=== PATIENT | female | born 1995 | race Caucasian/White ===

== ENCOUNTER 2017-11-21 15:40 | Emergency (ER) | payer MEDICAID ==
[2017-11-21] MEDS: ACETAMINOPHEN 325 MG TAB PO (20:24)
[2017-11-21 20:39] LABS: ADD MAN DIFF? NO
[2017-11-21 20:42] LABS: WHITE BLOOD COUNT 8.6 10^3/ul (4.8-10.8)
[2017-11-21 20:42] LABS: BASOPHILS % 0.5 % (0.0-2.0); EOSINOPHILS # 0.1 10^3/ul (0.0-0.5); EOSINOPHILS % 1.4 % (0.0-7.0); HEMATOCRIT 38.3 % (37.0-47.0); HEMOGLOBIN 12.4 g/dl (12.0-16.0); LYMPHOCYTES # 3.6 10^3/ul (0.8-2.9); LYMPHOCYTES % 41.3 % (15.0-51.0); MEAN CORPUSCULAR HGB CONC 32.4 g/dl (32.0-37.0); MEAN CORPUSCULAR VOLUME 92.5 fl (82.0-101.0); MEAN PLATELET VOLUME 10.9 fl (7.4-10.4); NEUTROPHIL # 3.9 10^3/ul (1.6-7.5); NEUTROPHILS % 45.6 % (39.0-77.0); PLATELET COUNT 310 10^3/UL (140-415); RED BLOOD COUNT 4.14 10^6/ul (4.20-5.40); RED CELL DISTRIBUTION WIDTH 13.1 % (11.5-14.5)
[2017-11-21] MEDS: METOCLOPRAMIDE 10 MG TAB PO (21:10)
[2017-11-21 21:11] LABS: INR 0.92; PROTIME 12.4 Sec (11.9-14.9)
[2017-11-21 21:12] LABS: PARTIAL THROMBOPLASTIN TIME 27.4 Sec (25.0-35.0)
[2017-11-21 21:29] LABS: ADD UMIC YES; UR ASCORBIC ACID NEGATIVE (NEGATIVE); UR BACTERIA MODERATE /HPF (NONE SEEN); UR BILIRUBIN (Dip) NEGATIVE (NEGATIVE); UR BLOOD (Dip) 1+ mg/dL (NEGATIVE); UR CLARITY CLOUDY (CLEAR); UR COLOR YELLOW (YELLOW); UR GLUCOSE (Dip) NEGATIVE (NEGATIVE); UR KETONES (Dip) 2+ mg/dL (NEGATIVE); UR LEUKOCYTE ESTERASE (Dip) 1+ Leu/ul (NEGATIVE); UR MUCUS MODERATE /HPF (NONE SEEN); UR NITRITE (Dip) NEGATIVE (NEGATIVE); UR RBC 5 /HPF (0-5); UR SQUAMOUS EPITHELIAL CELL MODERATE /HPF (FEW); UR TOTAL PROTEIN (Dip) NEGATIVE (NEGATIVE); UR UROBILINOGEN (Dip) NEGATIVE (NEGATIVE); UR WBC 27 /HPF (0-5)
== END 2017-11-21 22:44 | disposition home or self-care (01) ==
LOC: FTE 15:40
DX: O26.891 Other specified pregnancy related conditions, first trimester (principal); O23.41 Unspecified infection of urinary tract in pregnancy, first trimester; R10.2 Pelvic and perineal pain; Z3A.01 Less than 8 weeks gestation of pregnancy
CPT/HCPCS: 36415; 76801; 81001; 84702; 85025; 85610; 85730; 86900; 86901; 87086; 99284-25

== ENCOUNTER 2017-11-24 09:23 | Inpatient (IN) | payer MEDICAID ==
[2017-11-24] MEDS: D5W-0.45 NACL + KCL 20 MEQ 1,000 ML IV ×2 (13:44→21:52)
[2017-11-24 14:46] LABS: ANION GAP 13 (8-16); BLOOD UREA NITROGEN 8 mg/dl (7-20); CALCIUM 9.5 mg/dl (8.4-10.2); CARBON DIOXIDE 26 mmol/L (21-31); CHLORIDE 102 mmol/L (97-110); CREATININE 0.41 mg/dl (0.44-1.00); GLUCOSE 80 mg/dl (70-220); SODIUM 137 mmol/L (135-144)
[2017-11-24 15:25] LABS: FREE THYROXINE INDEX (Calc) 4.06 ug/ml (0.65-3.89); T3 UPTAKE 25.4 % (23.5-40.5)
[2017-11-24] MEDS: FAMOTIDINE 20 MG INJ IV ×3 (15:34→23:46)
[2017-11-24 15:56] LABS: ADD UMIC NO; UR ASCORBIC ACID NEGATIVE (NEGATIVE); UR BILIRUBIN (Dip) NEGATIVE (NEGATIVE); UR BLOOD (Dip) NEGATIVE (NEGATIVE); UR CLARITY CLEAR (CLEAR); UR COLOR YELLOW (YELLOW); UR GLUCOSE (Dip) NEGATIVE (NEGATIVE); UR KETONES (Dip) 2+ mg/dL (NEGATIVE); UR LEUKOCYTE ESTERASE (Dip) NEGATIVE Leu/ul (NEGATIVE); UR NITRITE (Dip) NEGATIVE (NEGATIVE); UR SPECIFIC GRAVITY (Dip) 1.013 (1.003-1.030); UR TOTAL PROTEIN (Dip) NEGATIVE (NEGATIVE); UR UROBILINOGEN (Dip) NEGATIVE (NEGATIVE)
[2017-11-24] MEDS ORDERED: RANITIDINE 50 MG in SOD CHLORIDE 0.9% 50 ML IVPB (18:00)
[2017-11-24 19:33] LABS: THYROID STIMULATING HORMONE 0.073 MIU/L (0.465-4.680)
[2017-11-24 21:11] LABS: FREE T3 3.89 pg/ml (2.77-5.27)
[2017-11-24] MEDS: ONDANSETRON 4 MG INJ IV (21:56)
[2017-11-24] MEDS: PYRIDOXINE 50 MG TAB PO (23:46)
[2017-11-25] MEDS: METOCLOPRAMIDE 10 MG INJ IV ×3 (02:35→18:10)
[2017-11-25] MEDS: FAMOTIDINE 20 MG INJ IV ×3 (05:59→18:10)
[2017-11-25] MEDS: D5W-0.45 NACL + KCL 20 MEQ 1,000 ML IV ×2 (05:59→12:34)
[2017-11-25] MEDS: PYRIDOXINE 50 MG TAB PO ×3 (06:00→18:10)
[2017-11-25] MEDS: FOLIC ACID IVPB (09:52)
[2017-11-25] MEDS: SOD CHLORIDE 0.9% IVPB (09:52)
[2017-11-25] MEDS: MULTIVITAMINS 10 ML in DEXTROSE 5%-0.45% NACL 1,000 ML IVPB (09:52)
[2017-11-26] MEDS: PYRIDOXINE 50 MG TAB PO ×4 (00:09→18:00)
[2017-11-26] MEDS: D5W-0.45 NACL + KCL 20 MEQ 1,000 ML IV ×4 (00:09→21:14)
[2017-11-26] MEDS: FAMOTIDINE 20 MG INJ IV ×4 (00:09→19:25)
[2017-11-26 06:42] LABS: ALANINE AMINOTRANSFERASE 37 IU/L (13-69); ALBUMIN 3.3 g/dl (3.3-4.9); ALKALINE PHOSPHATASE 63 IU/L (42-121); ANION GAP 12 (8-16); ASPARTATE AMINO TRANSFERASE 24 IU/L (15-46); BILIRUBIN,INDIRECT 0.2 mg/dl (0-1.1); BILIRUBIN,TOTAL 0.2 mg/dl (0.2-1.3); CALCIUM 8.9 mg/dl (8.4-10.2); CARBON DIOXIDE 25 mmol/L (21-31); CHLORIDE 104 mmol/L (97-110); CREATININE 0.44 mg/dl (0.44-1.00); GLUCOSE 100 mg/dl (70-220); POTASSIUM 3.9 mmol/L (3.5-5.1); SODIUM 137 mmol/L (135-144); TOTAL PROTEIN 6.6 g/dl (6.1-8.1)
[2017-11-26 06:44] LABS: BLOOD UREA NITROGEN < 2 mg/dl (7-20)
[2017-11-26] MEDS: FOLIC ACID IVPB (09:37)
[2017-11-26] MEDS: SOD CHLORIDE 0.9% IVPB (09:37)
[2017-11-26] MEDS: MULTIVITAMINS 10 ML in DEXTROSE 5%-0.45% NACL 1,000 ML IVPB (09:38)
[2017-11-26] MEDS: METOCLOPRAMIDE 10 MG INJ IV (19:25)
[2017-11-26] MEDS: ONDANSETRON 4 MG INJ IV (21:14)
[2017-11-27] MEDS: PYRIDOXINE 50 MG TAB PO ×5 (00:24→23:17)
[2017-11-27] MEDS: FAMOTIDINE 20 MG INJ IV ×5 (00:24→23:17)
[2017-11-27] MEDS: D5W-0.45 NACL + KCL 20 MEQ 1,000 ML IV ×3 (05:18→23:17)
[2017-11-27 06:25] LABS: FREE T3 3.46 pg/ml (2.77-5.27)
[2017-11-27 06:39] LABS: THYROID STIMULATING HORMONE 0.026 MIU/L (0.465-4.680)
[2017-11-27] MEDS: SOD CHLORIDE 0.9% IVPB (08:52)
[2017-11-27] MEDS: FOLIC ACID IVPB (08:52)
[2017-11-27] MEDS: MULTIVITAMINS 10 ML in DEXTROSE 5%-0.45% NACL 1,000 ML IVPB (08:52)
[2017-11-27 14:02] LABS: THYROID MICROSOMAL ANTIBODY 7 IU/mL (<9)
[2017-11-28] MEDS: D5W-0.45 NACL + KCL 20 MEQ 1,000 ML IV ×3 (06:31→18:50)
[2017-11-28] MEDS: PYRIDOXINE 50 MG TAB PO ×3 (06:31→18:11)
[2017-11-28] MEDS: FAMOTIDINE 20 MG INJ IV ×3 (06:33→18:11)
[2017-11-28] MEDS: FOLIC ACID IVPB (08:25)
[2017-11-28] MEDS: MULTIVITAMINS 10 ML in DEXTROSE 5%-0.45% NACL 1,000 ML IVPB (08:25)
[2017-11-28] MEDS: SOD CHLORIDE 0.9% IVPB (08:25)
[2017-11-29] MEDS: D5W-0.45 NACL + KCL 20 MEQ 1,000 ML IV ×3 (00:47→12:57)
[2017-11-29] MEDS: FAMOTIDINE 20 MG INJ IV ×3 (00:48→12:00)
[2017-11-29] MEDS: PYRIDOXINE 50 MG TAB PO ×3 (00:48→12:00)
[2017-11-29] MEDS: MULTIVITAMINS 10 ML in DEXTROSE 5%-0.45% NACL 1,000 ML IVPB (08:53)
[2017-11-29] MEDS: FOLIC ACID IVPB (08:53)
[2017-11-29] MEDS: SOD CHLORIDE 0.9% IVPB (08:53)
[2017-12-01 22:11] LABS: TSH RECEPTOR ANTIBODY 8 (< OR = 16)
== END 2017-11-29 14:53 | disposition home or self-care (01) | DRG 781 ==
LOC: PP2 09:23
DX: O21.1 Hyperemesis gravidarum with metabolic disturbance (principal); E86.0 Dehydration; R94.6 Abnormal results of thyroid function studies; O99.351 Diseases of the nervous system complicating pregnancy, first trimester; G43.909 Migraine, unspecified, not intractable, without status migrainosus; Z3A.01 Less than 8 weeks gestation of pregnancy
CPT/HCPCS: 80048; 80053; 81003; 84235; 84436; 84439; 84443; 84479; 84481; 86376; 86800; 87522; 99217; G0378

== ENCOUNTER 2018-05-10 17:00 | Outpatient (CLI) | payer MEDICAID | END 2018-05-10 20:20 | disposition home or self-care (01) | LOC: OBT 17:00 → L-D 17:00 → OBT 20:20 | DX: O09.293 Supervision of pregnancy with other poor reproductive or obstetric history, third trimester (principal); Z3A.32 32 weeks gestation of pregnancy | CPT/HCPCS: 76818 ==

== ENCOUNTER 2018-05-28 10:41 | Outpatient (CLI) | payer MEDICAID ==
[2018-05-28 11:31] LABS: ADD UMIC YES; UR ASCORBIC ACID 40 mg/dL (NEGATIVE); UR BACTERIA FEW /HPF (NONE SEEN); UR BILIRUBIN (Dip) NEGATIVE (NEGATIVE); UR BLOOD (Dip) NEGATIVE (NEGATIVE); UR CLARITY CLOUDY (CLEAR); UR COLOR YELLOW (YELLOW); UR GLUCOSE (Dip) NEGATIVE (NEGATIVE); UR KETONES (Dip) TRACE mg/dL (NEGATIVE); UR LEUKOCYTE ESTERASE (Dip) 1+ Leu/ul (NEGATIVE); UR MUCUS MANY /HPF (NONE SEEN); UR NITRITE (Dip) NEGATIVE (NEGATIVE); UR RBC 5 /HPF (0-5); UR SPECIFIC GRAVITY (Dip) 1.019 (1.003-1.030); UR SQUAMOUS EPITHELIAL CELL FEW /HPF (FEW); UR TOTAL PROTEIN (Dip) NEGATIVE (NEGATIVE); UR UROBILINOGEN (Dip) NEGATIVE (NEGATIVE); UR WBC 33 /HPF (0-5)
[2018-05-28] MEDS: LACTATED RINGER'S 1,000 ML IV (11:32)
== END 2018-05-28 13:35 | disposition home or self-care (01) ==
LOC: OBT 10:41 → L-D 10:42 → OBT 13:35
DX: O47.03 False labor before 37 completed weeks of gestation, third trimester (principal); Z3A.35 35 weeks gestation of pregnancy
CPT/HCPCS: 36415; 81001; 96360; 96361

== ENCOUNTER 2018-06-01 10:59 | Outpatient (CLI) | payer MEDICAID | END 2018-06-01 14:22 | disposition home or self-care (01) | LOC: OBT 10:59 → L-D 10:59 → OBT 14:22 | DX: O36.8130 Decreased fetal movements, third trimester, not applicable or unspecified (principal); O62.9 Abnormality of forces of labor, unspecified; Z3A.35 35 weeks gestation of pregnancy | CPT/HCPCS: 76818 ==

== ENCOUNTER 2018-06-28 20:57 | Inpatient (IN) | payer MEDICAID ==
[2018-06-28] MEDS ORDERED: METHYLERGONOVINE 0.2 MG INJ IM (21:30)
[2018-06-28] MEDS ORDERED: LIDOCAINE 1% (MPF) 30 ML INJ INJ (21:30)
[2018-06-28] MEDS ORDERED: OXYTOCIN 30 UNITS/LR 500 ML IV (21:30)
[2018-06-28] MEDS ORDERED: CARBOPROST 250 MCG INJ IM (21:30)
[2018-06-28] MEDS ORDERED: BUTORPHANOL 2 MG INJ IV (21:30)
[2018-06-28] MEDS ORDERED: MINERAL OIL LIGHT 10 ML VIAL TOP (21:30)
[2018-06-28] MEDS ORDERED: MISOPROSTOL 200 MCG TAB PR (21:30)
[2018-06-28] MEDS: LACTATED RINGER'S 1,000 ML IV (21:42)
[2018-06-28 21:54] LABS: ADD MAN DIFF? NO
[2018-06-28 21:57] LABS: BASOPHILS % 0.3 % (0.0-2.0); EOSINOPHILS # 0.1 10^3/ul (0.0-0.5); EOSINOPHILS % 0.8 % (0.0-7.0); HEMATOCRIT 34.2 % (37.0-47.0); HEMOGLOBIN 11.2 g/dl (12.0-16.0); LYMPHOCYTES # 2.5 10^3/ul (0.8-2.9); LYMPHOCYTES % 34.2 % (15.0-51.0); MEAN CORPUSCULAR HEMOGLOBIN 29.3 pg (29.0-33.0); MEAN CORPUSCULAR HGB CONC 32.7 g/dl (32.0-37.0); MEAN CORPUSCULAR VOLUME 89.5 fl (82.0-101.0); MEAN PLATELET VOLUME 11.2 fl (7.4-10.4); MONOCYTE # 0.9 10^3/ul (0.3-0.9); MONOCYTES % 11.9 % (0.0-11.0); NEUTROPHIL # 3.8 10^3/ul (1.6-7.5); NEUTROPHILS % 52.4 % (39.0-77.0); PLATELET COUNT 237 10^3/UL (140-415); RED BLOOD COUNT 3.82 10^6/ul (4.20-5.40); RED CELL DISTRIBUTION WIDTH 13.8 % (11.5-14.5)
[2018-06-28 21:57] LABS: WHITE BLOOD COUNT 7.3 10^3/ul (4.8-10.8)
[2018-06-28 22:11] LABS: INR 0.82; PROTIME 11.4 Sec (11.9-14.9); PT RATIO 0.9
[2018-06-28 22:12] LABS: PARTIAL THROMBOPLASTIN TIME 25.4 Sec (23.0-35.0)
[2018-06-28 22:45] LABS: HEPATITIS B SURFACE ANTIGEN NEGATIVE (NEGATIVE)
[2018-06-28] MEDS: OXYTOCIN 30 UNITS/LR 500 ML IV (22:56)
[2018-06-29] MEDS ORDERED: FENTAnyl 2MCG/ML-ROPIV 0.2% 100 ML (00:21)
[2018-06-29] MEDS: LACTATED RINGER'S 1,000 ML IV ×4 (00:24→12:06)
[2018-06-29] MEDS ORDERED: ONDANSETRON 4 MG INJ IV (00:30)
[2018-06-29] MEDS ORDERED: NALOXONE (0.4 MG/ML) INJ IV (00:30)
[2018-06-29] MEDS: FENTAnyl 2MCG/ML-ROPIV 0.2% 100 ML BAG EPI (08:43)
[2018-06-29] MEDS ORDERED: MINERAL OIL LIGHT 10 ML VIAL TOP (10:30)
[2018-06-29] MEDS: OXYTOCIN 30 UNITS/LR 500 ML IV ×2 (13:21→15:09)
[2018-06-29 14:45] LABS: RAPID PLASMA REAGIN NONREACTIVE (NR)
[2018-06-29] MEDS ORDERED: OXYCODONE/ASPIRIN (4.88/325) TAB PO ×2 (15:00→17:30)
[2018-06-29] MEDS: IBUPROFEN 600 MG TAB PO ×2 (15:00→18:00)
[2018-06-29] MEDS ORDERED: OXYTOCIN 30 UNITS/LR 500 ML IV (17:30)
[2018-06-29] MEDS ORDERED: CARBOPROST 250 MCG INJ IM (17:30)
[2018-06-29] MEDS ORDERED: ZOLPIDEM 5 MG TAB PO (17:30)
[2018-06-29] MEDS ORDERED: MISOPROSTOL 200 MCG TAB PR (17:30)
[2018-06-29] MEDS ORDERED: METHYLERGONOVINE 0.2 MG INJ IM (17:30)
[2018-06-29] MEDS: BENZOCAINE 20% 56 ML SPRAY TOP (18:03)
[2018-06-29] MEDS: LANOLIN HPA 1 PKT TOP (18:03)
[2018-06-29] MEDS: WITCH HAZEL/GLYCERIN PAD PR (18:03)
[2018-06-29] MEDS: SENNA/DOCUSATE NA (8.6MG/50MG) TAB PO (21:06)
[2018-06-30] MEDS: IBUPROFEN 600 MG TAB PO ×4 (00:19→18:00)
[2018-06-30 08:32] LABS: ADD MAN DIFF? NO
[2018-06-30 08:39] LABS: WHITE BLOOD COUNT 12.1 10^3/ul (4.8-10.8)
[2018-06-30 08:39] LABS: BASOPHILS % 0.3 % (0.0-2.0); EOSINOPHILS # 0.1 10^3/ul (0.0-0.5); HEMOGLOBIN 9.2 g/dl (12.0-16.0); LYMPHOCYTES # 3.8 10^3/ul (0.8-2.9); LYMPHOCYTES % 31.7 % (15.0-51.0); MEAN CORPUSCULAR HEMOGLOBIN 29.2 pg (29.0-33.0); MEAN CORPUSCULAR HGB CONC 31.7 g/dl (32.0-37.0); MEAN CORPUSCULAR VOLUME 92.1 fl (82.0-101.0); MEAN PLATELET VOLUME 11.6 fl (7.4-10.4); MONOCYTE # 1.2 10^3/ul (0.3-0.9); NEUTROPHIL # 6.9 10^3/ul (1.6-7.5); NEUTROPHILS % 56.6 % (39.0-77.0); PLATELET COUNT 193 10^3/UL (140-415); RED BLOOD COUNT 3.15 10^6/ul (4.20-5.40); RED CELL DISTRIBUTION WIDTH 14.2 % (11.5-14.5)
[2018-06-30] MEDS: SENNA/DOCUSATE NA (8.6MG/50MG) TAB PO ×2 (08:46→21:09)
[2018-06-30] MEDS: OXYCODONE/ASPIRIN (4.88/325) TAB PO ×2 (08:46→15:51)
[2018-07-01] MEDS: IBUPROFEN 600 MG TAB PO ×3 (00:10→12:02)
[2018-07-01] MEDS: SENNA/DOCUSATE NA (8.6MG/50MG) TAB PO (09:00)
[2018-07-01] MEDS: DIPHTH/TET/ACEL PERTUSS (ADULT) 0.5 ML VIAL IM* (13:31)
== END 2018-07-01 14:05 | disposition home or self-care (01) | DRG 807 ==
LOC: PP1 06-29 17:09 → L-D 20:57
PROVIDERS: Obstetrics & Gynecology
PROC: 10E0XZZ Delivery of Products of Conception, External Approach (ICD-10-PCS; principal; 2018-06-29)
DX: O77.0 Labor and delivery complicated by meconium in amniotic fluid (principal); Z37.0 Single live birth; Z3A.39 39 weeks gestation of pregnancy
CPT/HCPCS: 76815; 76818; 84443; 85025; 85610; 85730; 86592; 86850; 86900; 86901; 87340; 90715; 99464